=== PATIENT | female | born 1975 | race African-American/Black ===

== ENCOUNTER 2021-02-01 08:55 | Inpatient (IN) | payer OTHER ==
[2021-02-01 09:47] VITALS: BMI 24.1
[2021-02-01] MEDS ORDERED: chlordiazePOXIDE HCL 25 MG CAPSULE PO PRN (11:49)
[2021-02-01] MEDS ORDERED: ACETAMINOPHEN 325 MG TABLET (FP) PO PRN ×2 (11:49)
[2021-02-01] MEDS ORDERED: MAG HYDROX/AL HYDROX/SIMETH 30 ML UNIT-DOSE CUP PO PRN (11:49)
[2021-02-01] MEDS ORDERED: MAGNESIUM CITRATE 300 ML BOTTLE PO PRN (11:49)
[2021-02-01] MEDS ORDERED: MENTHOL/PHENOL 1 EACH UD MM PRN (11:49)
[2021-02-01] MEDS ORDERED: BISMUTH SUBSALICYLATE 524 MG/30 ML UD PO PRN (11:49)
[2021-02-01] MEDS ORDERED: METHOCARBAMOL 500 MG TABLET PO PRN (11:49)
[2021-02-01] MEDS ORDERED: MAGNESIUM HYDROX 2400MG/30ML ORAL SUSPENSION 30 ML CUP PO PRN (11:49)
[2021-02-01] MEDS ORDERED: IBUPROFEN 400 MG TABLET (FP) PO PRN (11:49)
[2021-02-01] MEDS ORDERED: BUPRENORPHINE/NALOXONE 12 MG-3 MG SL FILM PACKET SL SCH (12:30)
[2021-02-01] MEDS ORDERED: ATAZANAVIR SO4 200 MG CAPSULE PO SCH (13:30)
[2021-02-01] MEDS: GABAPENTIN 300 MG CAPSULE PO SCH (14:46)
[2021-02-01] MEDS: RITONAVIR 100 MG TABLET PO SCH (14:46)
[2021-02-01] MEDS: ASPIRIN 81 MG CHEWABLE TABLETS PO SCH (14:46)
[2021-02-01] MEDS: PRENATAL VITAMINS W/ FOLIC ACID TABLET (FP) PO SCH (14:46)
[2021-02-01] MEDS: EMTRICITABINE/TENOFOV ALAFENAM (DESCOVY) TABLET PO SCH (14:46)
[2021-02-01] MEDS: NIFEdipine E.R. 30 MG TABLET PO SCH (14:47)
[2021-02-01] MEDS: hydrOXYzine PAMOATE 25 MG CAPSULE (FP) PO SCH ×2 (14:47→19:17)
[2021-02-01] MEDS ORDERED: cloNIDine HCL 0.1 MG TABLET PO PRN ×2 (16:49→18:43)
[2021-02-01] MEDS: HYDROXYCHLOROQUINE SO4 200 MG TABLET (FP) PO SCH (17:27)
[2021-02-01] MEDS: chlordiazePOXIDE HCL 25 MG CAPSULE PO SCH (17:27)
[2021-02-01] MEDS ORDERED: METHADONE HCL 10 MG TABLET (FOR DETOX USE ONLY) PO ONE (18:43)
[2021-02-01] MEDS ORDERED: ONDANSETRON 4 MG/2 ML VIAL IM PRN (18:45)
[2021-02-01] MEDS ORDERED: cloNIDine HCL 0.1 MG TABLET PO ONE (19:01)
[2021-02-01] MEDS: TRIMETHOBENZAMIDE HCL 200MG/2ML INJ IM PRN (19:03)
[2021-02-02] MEDS: MELATONIN 5 MG TABLETS PO SCH (00:13)
[2021-02-02] MEDS: GABAPENTIN 300 MG CAPSULE PO SCH ×3 (00:13→13:59)
[2021-02-02] MEDS: hydrOXYzine PAMOATE 25 MG CAPSULE (FP) PO SCH ×5 (00:14→18:30)
[2021-02-02] MEDS: chlordiazePOXIDE HCL 25 MG CAPSULE PO SCH ×4 (00:14→18:01)
[2021-02-02] MEDS: THIAMINE HCL 100 MG TABLET (FP) PO SCH (00:14)
[2021-02-02] MEDS: ONDANSETRON *ODT* 4 MG TABLET SL PRN ×2 (02:07→09:19)
[2021-02-02] MEDS: TRIMETHOBENZAMIDE HCL 200MG/2ML INJ IM PRN (05:56)
[2021-02-02] MEDS ORDERED: METHADONE HCL 5 MG TABLET (FOR DETOX USE ONLY) ONE (09:05)
[2021-02-02] MEDS ORDERED: METHADONE HCL 10 MG TABLET (FOR DETOX USE ONLY) ONE (09:06)
[2021-02-02] MEDS ORDERED: METHADONE (DETOX) 20 MG, METHADONE (DETOX) 5 MG PO ONE (10:00)
[2021-02-02] MEDS: ASPIRIN 81 MG CHEWABLE TABLETS PO SCH (11:10)
[2021-02-02] MEDS: RITONAVIR 100 MG TABLET PO SCH (11:11)
[2021-02-02] MEDS: EMTRICITABINE/TENOFOV ALAFENAM (DESCOVY) TABLET PO SCH (11:11)
[2021-02-02] MEDS: HYDROXYCHLOROQUINE SO4 200 MG TABLET (FP) PO SCH ×2 (11:11→18:30)
[2021-02-02] MEDS: PRENATAL VITAMINS W/ FOLIC ACID TABLET (FP) PO SCH (11:12)
[2021-02-02] MEDS: NIFEdipine E.R. 30 MG TABLET PO SCH (11:12)
[2021-02-02] MEDS: ATAZANAVIR SO4 300 MG CAPSULE PO SCH (11:13)
[2021-02-02] MEDS ORDERED: DICYCLOMINE HCL 10 MG CAPSULE PO ONE (14:00)
[2021-02-03] MEDS: MELATONIN 5 MG TABLETS PO SCH (00:37)
[2021-02-03] MEDS: hydrOXYzine PAMOATE 25 MG CAPSULE (FP) PO SCH ×5 (00:37→17:51)
[2021-02-03] MEDS: THIAMINE HCL 100 MG TABLET (FP) PO SCH (00:37)
[2021-02-03] MEDS: GABAPENTIN 300 MG CAPSULE PO SCH ×4 (00:37→14:53)
[2021-02-03] MEDS: chlordiazePOXIDE HCL 25 MG CAPSULE PO SCH ×4 (00:44→17:50)
[2021-02-03] MEDS ORDERED: METHADONE HCL 10 MG TABLET (FOR DETOX USE ONLY) PO ONE (10:00)
[2021-02-03] MEDS: ASPIRIN 81 MG CHEWABLE TABLETS PO SCH (10:45)
[2021-02-03] MEDS: EMTRICITABINE/TENOFOV ALAFENAM (DESCOVY) TABLET PO SCH (10:45)
[2021-02-03] MEDS: RITONAVIR 100 MG TABLET PO SCH (10:50)
[2021-02-03] MEDS: NIFEdipine E.R. 30 MG TABLET PO SCH ×2 (10:50→10:52)
[2021-02-03] MEDS: PRENATAL VITAMINS W/ FOLIC ACID TABLET (FP) PO SCH (10:50)
[2021-02-03] MEDS: ATAZANAVIR SO4 300 MG CAPSULE PO SCH (10:50)
[2021-02-03] MEDS: HYDROXYCHLOROQUINE SO4 200 MG TABLET (FP) PO SCH ×2 (10:50→17:51)
[2021-02-03 11:04] LABS: CALCIUM 10.2 mg/dL (8.5-10.1)
[2021-02-03 11:05] LABS: ALBUMIN 4.3 g/dl (3.4-5.0); BLOOD UREA NITROGEN 26.7 mg/dL (7-18); HEMATOCRIT 48.2 % (32.4-45.2); MCH 30.1 pg (25.7-33.7); MCHC 33.3 g/dl (32.0-36.0); MEAN CELL VOLUME 90.3 fl (80-96); MEAN PLT VOLUME 11.1 fl (7.5-11.1); PLATELET COUNT 214 K/MM3 (134-434); RBC 5.34 M/mm3 (3.60-5.2); RDW 12.5 % (11.6-15.6)
[2021-02-03 11:09] LABS: BILIRUBIN,TOTAL 6.4 mg/dL (0.2-1); TOT PROT 9.5 g/dl (6.4-8.2)
[2021-02-03] MEDS: ONDANSETRON *ODT* 4 MG TABLET SL PRN (13:55)
[2021-02-03 14:04] VITALS: BP 113/61; PULSE 122; TEMP 98.2
[2021-02-03] MEDS ORDERED: NIFEdipine E.R. 30 MG TABLET PO SCH (16:49)
[2021-02-04] MEDS ORDERED: chlordiazePOXIDE HCL 10 MG CAPSULE PO PRN
[2021-02-04] MEDS ORDERED: chlordiazePOXIDE HCL 10 MG CAPSULE PO SCH (05:00)
[2021-02-04] MEDS ORDERED: METHADONE (DETOX) 10 MG, METHADONE (DETOX) 5 MG PO ONE (10:00)
[2021-02-04] MEDS ORDERED: NIFEdipine E.R. 30 MG TABLET PO SCH (10:00)
[2021-02-05] MEDS ORDERED: chlordiazePOXIDE HCL 10 MG CAPSULE PO SCH (05:00)
[2021-02-05] MEDS ORDERED: METHADONE HCL 10 MG TABLET (FOR DETOX USE ONLY) PO ONE (10:00)
[2021-02-06] MEDS ORDERED: chlordiazePOXIDE HCL 10 MG CAPSULE PO ONE (05:00)
[2021-02-06] MEDS ORDERED: METHADONE HCL 5 MG TABLET (FOR DETOX USE ONLY) PO ONE (06:00)
== END 2021-02-03 15:30 | disposition short-term general hospital (02) | DRG 773 ==
LOC: YASAS 08:55 → Y6N 12:20
PROVIDERS: ADMIT Allergy & Immunology; ATTEND Allergy & Immunology
PROC: HZ2ZZZZ Detoxification Services for Substance Abuse Treatment (ICD-10-PCS; principal; 2021-02-01)
DX: F11.23 Opioid dependence with withdrawal (principal); F10.230 Alcohol dependence with withdrawal, uncomplicated; F14.20 Cocaine dependence, uncomplicated; F12.20 Cannabis dependence, uncomplicated; F19.280 Other psychoactive substance dependence with psychoactive substance-induced anxiety disorder; F41.1 Generalized anxiety disorder; F39 Unspecified mood [affective] disorder; Z21 Asymptomatic human immunodeficiency virus [HIV] infection status; D69.3 Immune thrombocytopenic purpura; M32.9 Systemic lupus erythematosus, unspecified; E86.0 Dehydration; M13.842 Other specified arthritis, left hand; M13.841 Other specified arthritis, right hand; M25.561 Pain in right knee; I25.2 Old myocardial infarction; Z88.2 Allergy status to sulfonamides; Z88.8 Allergy status to other drugs, medicaments and biological substances
CPT/HCPCS: 36415; 71045-TC-FY; 80053; 81025; 85027; 86780; 93005; 93010; C9803; J0735; Q0162; U0003; U0005